=== PATIENT | male | born 1970 | race Asian ===

== ENCOUNTER 2017-05-01 14:30 | Emergency (ER) | payer SELFPAY ==
[~2017-05-01] VITALS: Ht 172.7 cm; Wt 77.0 kg
[2017-05-01 14:43] VITALS: BP 129/86
== END 2017-05-01 17:00 | disposition left against medical advice (07) ==
LOC: ER 14:30
DX: Z53.21 Procedure and treatment not carried out due to patient leaving prior to being seen by health care provider (principal)